=== PATIENT | female | born 2000 | race Caucasian/White ===

== ENCOUNTER 2018-08-28 17:34 | Emergency (ER) | payer MEDICAID ==
[~2018-08-28] VITALS: Wt 60.4 kg
--- NOTE | 2018-08-28 18:31 | ERD ---
ER Documentation Chief Complaint Chief Complaint bib self, cc: vag bleed for 10 days, preg. unknown time, HPI 18-year-old female who states that she had a positive home test is complaining of vaginal bleeding for 10 days. States that she changes pads 6 times a day. She also reports pelvic pain for the last 3 days. LMP 07/07/2018. Patient is G one P0. Denies fever or chills. Denies dysuria. Denies abdominal pain, vomiting, or diarrhea. ROS All systems reviewed and are negative except as per history of present illness. Medications Home Meds Active Scripts Acetaminophen* (Tylophen*) 500 Mg Capsule, 1 CAP PO Q6H PRN for PAIN AND OR ELEVATED TEMP, #20 CAP Prov:AGUS LARA SAMPLING EXPERT 08/28/18 Allergies Allergies: Coded Allergies: No Known Allergy (Unverified , 08/28/18) PMhx/Soc History of Surgery: No Anesthesia Reaction: No Hx Neurological Disorder: No Hx Respiratory Disorders: No Hx Cardiac Disorders: No Hx Psychiatric Problems: No Hx Miscellaneous Medical Probl: No Hx Alcohol Use: No Hx Substance Use: No Hx Tobacco Use: No Smoking Status: Never smoker Physical Exam Vitals Vital Signs Date Temp Pulse Resp B/P (MAP) Pulse Ox O2 O2 Flow FiO2 Time Delivery Rate 08/28/18 97.1 94 19 129/92 100 17:40 (104) Physical Exam General: Well-developed, well-nourished, conscious and coherent, in no distress Skin: Warm and dry without rash, good texture and turgor Head: Normocephalic without evidence of trauma Chest: Normal AP diameter. Good expansion without retractions. Nontender. Lungs are clear to auscultate bilaterally with good tidal volume Heart: Regular rate and rhythm. No murmur, rub, or gallops heard Abdomen: Soft, suprapubic tenderness without masses, guarding, or rebound. Bowel sounds are active. No hepatosplenomegaly Back: Without spinal or CVA tenderness Extremities: Full range of motion. Good strength bilaterally. No erythema, ecchymosis, or edema. Peripheral pulses are intact. Sensation intact Neuro: Alert and oriented 4, GCS 15. Result Diagram: 08/28/18 4580 Results 24 hrs Laboratory Tests Test 08/28/18 18:29 08/28/18 18:49 POC Beta HCG, Qualitative POSITIVE White Blood Count 10.7 10^3/ul Red Blood Count 3.87 10^6/ul Hemoglobin 11.0 g/dl Hematocrit 33.7 % Mean Corpuscular Volume 87.1 fl Mean Corpuscular Hemoglobin 28.4 pg Mean Corpuscular Hemoglobin Concent 32.6 g/dl Red Cell Distribution Width 12.9 % Platelet Count 267 10^3/UL Mean Platelet Volume 10.0 fl Immature Granulocytes % 0.400 % Neutrophils % 82.6 % Lymphocytes % 11.4 % Monocytes % 4.9 % Eosinophils % 0.4 % Basophils % 0.3 % Nucleated Red Blood Cells % 0.0 /100WBC Immature Granulocytes # 0.040 10^3/ul Neutrophils # 8.8 10^3/ul Lymphocytes # 1.2 10^3/ul Monocytes # 0.5 10^3/ul Eosinophils # 0.0 10^3/ul Basophils # 0.0 10^3/ul Nucleated Red Blood Cells # 0.0 10^3/ul Urine Color YELLOW Urine Clarity SLIGHTLY CLOUDY Urine pH 7.0 Urine Specific [place] 1.020 Urine Ketones NEGATIVE mg/dL Urine Nitrite NEGATIVE mg/dL Urine Bilirubin NEGATIVE mg/dL Urine Urobilinogen 1+ mg/dL Urine Leukocyte Esterase NEGATIVE Haylee/ul Urine Microscopic RBC > 182 /HPF Urine Microscopic WBC 3 /HPF Urine Hemoglobin 3+ mg/dL Urine Glucose NEGATIVE mg/dL Urine Total Protein NEGATIVE mg/dl Beta HCG, Quantitative 991.7 mIU/ml PROCEDURE: US Pelvis. CLINICAL INDICATION: vaginal bleeding TECHNIQUE: Multiple sonographic images of the pelvis were obtained utilizing a transabdominal and endovaginal technique. The images were reviewed on a PACS workstation. COMPARISON: None. FINDINGS: The uterus is normal in size and demonstrates a normal appearance of the myometrium. The endometrial stripe is heterogeneous in appearance and has the thickness of 12 mm. No intrauterine gestation is noted. The ovaries are normal in size and echogenicity. Normal Doppler flow is identified in both ovaries. The right ovary measures 2.2 x 1.1 x 1.7 cm. There is a 1.8 x 1.5 x 0.8 cm echogenic structure with a central cystic component in either within the right adnexa or adjacent to the right ovary. There is a questionable yolk sac noted within this gestational sac. The left ovary measures 2.9 x 0.9 x 1.6 cm. There is a 9 mm simple cyst adjacent to the left ovary. There is a small amount of free fluid in the pelvis. RPTAT: AA IMPRESSION: No intrauterine gestation visualized. Questionable hemorrhagic cyst versus ectopic in close proximity to the right ovary. Follow-up ultrasound and HCG levels is recommended. A call report was made and the findings discussed with ER nurse Lissa at 08/28/2018 8:41:20 PM. .Kei Garcia MD, MD Date Time Electronically viewed and signed by .Kei Garcia MD, on 08/28/2018 20:44 .S/ CC: AGUS LARA. SAMPLING EXPERT Procedures/MDM ED course: CBC: No evidence of severe anemia or infection. Beta hC.7 UA: No evidence of urinary tract infection. Blood type: O+. RhoGAM is not indicated for patient. OB ultrasound: No intrauterine gestation visualized, questionable hemorrhagic cyst versus ectopic in close proximity to the right ovary. Medical decision-making: Patient with positive hCG presents the ED with vaginal bleeding and pelvic pain. No intrauterine gestation is noted on ultrasound, ectopic cannot be ruled out at this time. However, her beta hCG quant is below 1000, this may represent an early . Patient at this point states that she was seen at [facility] 5 days ago, was told the same thing. However, her paperwork from [facility] that does not include beta hCG quant level. I am unable to determine whether beta-hCG quant is going up or down. Patient is advised to return to the ED in 2 days for repeat beta hCG quant. Spontaneous and ectopic instructions and return precautions provided. Medications on discharge: Tylenol. Follow-up: Primary care provider in 2 days or return to ED if worse. Departure Diagnosis: Primary Impression: Vaginal bleeding Condition: Stable AGUS LARA NP Aug 28, 2018 18:31
[2018-08-28] MEDS ORDERED: ACET500C5 PO (21:01)
[2018-08-28 21:21] VITALS: BP 112/64; PULSE 87; RESP 19
== END 2018-08-28 21:22 | disposition home or self-care (01) ==
LOC: FTE 17:34
DX: O20.9 Hemorrhage in early pregnancy, unspecified (principal); R10.2 Pelvic and perineal pain; R40.2412 Glasgow coma scale score 13-15, at arrival to emergency department; Z3A.00 Weeks of gestation of pregnancy not specified
CPT/HCPCS: 36415; 76801; 76817; 81001; 81025; 84702; 85025; 86900; 86901; Z7502